=== PATIENT | male | born 1980 | race African-American/Black ===

== ENCOUNTER 2022-05-25 15:04 | Emergency (ER) | payer MEDICAID ==
[~2022-05-25] VITALS: Ht 182.9 cm; Wt 89.5 kg
[2022-05-25 15:18] VITALS: BP 121/77
== END 2022-05-25 20:00 | disposition left against medical advice (07) ==
LOC: ER 15:04
DX: Z53.21 Procedure and treatment not carried out due to patient leaving prior to being seen by health care provider (principal)

== ENCOUNTER 2023-11-28 11:13 | Emergency (ER) | payer MEDICAID ==
[~2023-11-28] VITALS: Ht 180.3 cm; Wt 100.0 kg
[2023-11-28 11:24] VITALS: O2SAT 99
[2023-11-28 12:32] LABS: BASOPHILS % 1.6 % (0.0-2.0); EOSINOPHILS % 2.8 % (0.0-5.0); HEMATOCRIT. 45.7 % (42.0-52.0); HEMOGLOBIN. 15.4 g/dL (14.0-18.0); LYMPHOCYTES % 44.2 % (20.0-50.0); MEAN CORPUSCULAR HGB CONC 33.8 g/dL (31.0-37.0); MEAN CORPUSCULAR VOLUME 85.9 fL (80.0-94.0); NEUTROPHILS % 43.4 % (40.0-76.0); PLATELET 205 x1000/uL (130-400); RED BLOOD CELL COUNT 5.32 mill/uL (4.7-6.1); RED CELL DISTRIBUTION WIDTH 14.3 % (11.6-14.6); WHITE BLOOD COUNT 4.8 x1000/uL (4.5-11.0)
[2023-11-28] MEDS: HYDROCODONE/ACETAMINOPHEN 5/325MG TABLET PO STA (12:39)
[2023-11-28 13:03] LABS: ALANINE AMINOTRANSFERASE 23 IU/L (10-49); ALBUMIN 4.8 g/dL (3.2-4.8); ASPARTATE AMINOTRANSFERASE 27 IU/L (<34); CALCIUM 9.6 mg/dL (8.7-10.4); CARBON DIOXIDE 24 mEq/L (21-32); CHLORIDE 110 mEq/L (98-107); CREATININE 1.1 mg/dL (0.6-1.3); GLUCOSE 91 mg/dL (70-105); SODIUM 137 mEq/L (136-145); UREA NITROGEN BLOOD 10 mg/dL (9-23)
[2023-11-28] MEDS ORDERED: IOHEXOL-300 100 ML BOTTLE ONE (15:01)
[2023-11-28] MEDS: ONDANSETRON HCL 4MG/2ML INJ IV STA (15:49)
[2023-11-28] MEDS: BACITRACIN ZINC OINT UDPKT TOP ONE (16:48)
[2023-11-28] MEDS ORDERED: HYDR-4001 MT (17:02)
[2023-11-28] MEDS ORDERED: BO1 TP (17:02)
[2023-11-28 17:54] VITALS: BP 136/88; PULSE 60; RESP 18; TEMP 98.6
== END 2023-11-28 17:56 | disposition home or self-care (01) ==
LOC: ER 11:13
DX: S16.1XXA Strain of muscle, fascia and tendon at neck level, initial encounter (principal); S80.212A Abrasion, left knee, initial encounter; S60.311A Abrasion of right thumb, initial encounter; M25.531 Pain in right wrist; F12.10 Cannabis abuse, uncomplicated; V49.49XA Driver injured in collision with other motor vehicles in traffic accident, initial encounter; Y93.89 Activity, other specified; Y92.89 Other specified places as the place of occurrence of the external cause; Y99.8 Other external cause status
CPT/HCPCS: 80053; 85025; 36415; 71046; 73030; 73110; 73130; 73562; 72125; 74177; 96374; 99285; Q9967; J2405; Z7610